=== PATIENT | female | born 1990 | race Hispanic/Latino ===

== ENCOUNTER 2023-10-08 12:00 | Outpatient (RCR) | payer OTHER, SELFPAY ==
--- NOTE | 2023-10-05 18:00 | PT.OIE ---
Current Diagnoses Dizziness and giddiness (10/05/23) Visit Care Team Role Provider Type Viktoriya Mejia MD Family Provider Non-Staff Primary Care Provider Specialty: Medical Address: [address] [place], [address] Email: Jadyn Galdamez MD Attending Provider Non-Staff Referring Provider Specialty: Medical Address: [address] [place] [address], [id number] Email: Physical Therapy Initial Evaluation PT-OP-A Visit Information Start: 10/05/23 17:55 Freq: Status: Active Protocol: Document 10/05/23 16:45 DCW (Rec: 10/05/23 18:02 DCW [id number]) Out-Patient Physical Therapy Visit Information Visit Information Visit Type Initial Evaluation Visit Start Time 16:45 Visit Stop Time 17:55 Visit Number 1 Number of RESEARCH SPECIALIST Visits 0 Evaluation Information Evaluation Date 10/05/23 PT-OP-B Current Condition Start: 10/05/23 17:55 Freq: Status: Active Protocol: Document 10/05/23 16:45 DCW (Rec: 10/06/23 09:44 DCW [id number]) Current Condition History of Current Condition Onset Date Multi-year history Current Complaints Repeated episodes of vertigo History of Current Condition Pt is a 32 year old female with a complicated history of vertigo. Pt reports her first episode was at 16, lasted a few weeks, and then went a few years with nothing. Returned again in 2018, and since that time, has episodes approximately once a year when she experiences was sounds like position-dependent vertigo, as well as low-grade imbalance/light-headedness with movement. Pt notes that in the past, she has done research online, and has tried to treat herself with Borok maneuvers, which has helped. Most recently, pt has had a more severe episode lasting ~ one month, pt's self-Brook did not help, and in fact, pt felt it made it worse. Notes when she is symptomatic, as noticed she moves around en bloc, with minimal head movement. Also reports fullness in her ears recently, although in the past, did not have fullness or pressure with her episodes. Notes during the Pandemic, pt experienced recurrent ear infections, and was given some antibiotics. Notes she did feel like her hearing afterward was muted, but largely returned after getting her ears flushed. Notes no history of head injury. Does admit to migraine history, reports that sometimes it feels there is associated headache activity with her dizziness, but not every time. PT-OP-C Subjective Start: 10/05/23 17:55 Freq: Status: Active Protocol: Document 10/05/23 16:45 DCW (Rec: 10/05/23 18:02 DCW [id number]) OP-PT Subjective Patient Comments Patient Comments It's been a lot worse this episode. It's never lasted this long. I had trouble getting around, because I felt like I couldn't even drive. Does note she has been improving over the past week. Patient Reported Progress Improving PT-OP-O Vestibular Start: 10/05/23 17:55 Freq: Status: Active Protocol: Document 10/05/23 16:45 DCW (Rec: 10/06/23 09:36 DCW [id number]) Vestibular Assessment Auditory Tests Peguero Test Lateralizes right Rinne Test Negative Air Conduction Results Left Greater Visual Testing Smooth Pursuits Horizontal WNL Smooth Pursuits Vertical WNL Saccades Horizontal WNL Saccades Vertical WNL Heave Test Negative Thrust Head Negative Convergence Test WNL DVA (Line Degradation) 4 Positional Testing Remi-Hallpike Negative Left,Negative Right Rolling Test Negative Left,Negative Right Vestibular Function Tests Fukuda Test Positive rotation right PT-OP-Q Treatments Start: 10/05/23 17:55 Freq: Status: Active Protocol: Document 10/05/23 16:45 DCW (Rec: 10/05/23 18:02 DCW [id number]) Self-Care/Home Management Treatment Education Other Education In depth pt education regarding A&P of vestibular system, BPPV vs Meniere's vs Migraine vs VN, potential treatments. PT-OP-T Assessment and Plan Start: 10/05/23 17:55 Freq: Status: Active Protocol: Document 10/05/23 16:45 DCW (Rec: 10/06/23 14:15 DCW [id number]) Physical Therapy Assessment Rehab Potential Rehabilitation Potential Fair Evaluation Complexity Number of Personal Factors/Comorbidities 3 or More Number of Body Systems Impaired 4 or More Clinical Presentation at Evaluation Unstable Impairments Impairments Balance,Coordination, Functional Activities, Functional Mobility,Gait, Vestibular Goals Two Impairment Pt demonstrates a 4 line degradation with Dynamic Visual Acuity testing Group Home Goal (LTG) Pt to exhibit at worst a two line DVA degradation in order to exhibit improvement with VOR. One Impairment Pt experiences recurrent episodes of vertigo, largely position-dependent Short Term Goal (STG) Pt to report no episodes of vertigo over the course of one month, allowing her to return to feeling safe driving her children STG Duration 11/05/23 Kiln Door Repairer Goal (LTG) Pt to report no episodes of vertigo over the course of three months LTG Duration 01/03/24 Assessment Summary Assessment Pt presents with a highly complex history of vertigo, with testing largely inconclusive at this time. Pt has some tests or subjective reports that are somewhat suggestive of various vestibular disorders, however nothing that fits well overall . Pt's subjective reports of vertigo that is largely position-dependent, as well as the fact that she has previously successfully treated herself with Brook maneuvers, makes potential BPPV the most likely scenario, in addition to the fact that the potential for canal conversion may be the reason why she has recently had worsening symptoms after attempted self-Brook. Pt is, however very young to be experiencing BPPV with this much frequency, especially with no head trauma history. Next most likely DDx would be Migraine Vertigo, due to pt's migraine history and the recurrent nature of her symptoms, however it would be very unusual for pt to have migraine activity for 1+ month straight, and would have been unlikely to respond to previous Brook attempts. Other less likely potential DDx include Meniere's, which would fit the recurrent nature and aural fullness, but little else, or a central cause, however pt not currently presenting with any signs or symptoms. Pt does, however, have a Neuro appointment in January, which may help rule in/out other potential central causes. Pt should benefit from further vestibular testing in an effort to continue DDx, as well as positional re-testing and CRM as needed. Pt chris additionally benefit from VOR/ Habituation/Adaptation vestibular exercises to help decrease severity of symptoms and improve DVA. Physical Therapy Plan Frequency and Duration Frequency of Treatment 2x/Week Plan of Care Start Date 10/05/23 Plan of Care End Date 01/03/24 Therapeutic Interventions Therapeutic Interventions Balance Training,Canalithic Repositioning,Coordination Training,Home Exercise Program ,Manual Therapy,Neuromuscular Re-education,Patient/Caregiver Education,Self-Care/Home Management,Soft Tissue Mobilization,Therapeutic Activities,Therapeutic Exercises,Vestibular Rehabilitation Next Visit Focus/Plan Next Note Type Treatment Note Next Visit Plan Positional testing, CRM as indicated, Vestibular rehabilitation
--- NOTE | 2023-10-05 18:00 | PT.OPPOC ---
Physical, Occupational & Speech Therapy At [facility] Current Diagnoses Dizziness and giddiness (10/05/23) Visit Care Team Role Provider Type Viktoriya Mejia MD Family Provider Non-Staff Primary Care Provider Specialty: Medical Address: [address] [place], [address] Email: Jadyn Galdamez MD Attending Provider Non-Staff Referring Provider Specialty: Medical Address: [address] [place] [address], [id number] Email: Plan Of Care PT-OP-T Assessment and Plan Start: 10/05/23 17:55 Freq: Status: Active Protocol: Document 10/05/23 16:45 DCW (Rec: 10/06/23 14:15 DCW [id number]) Physical Therapy Assessment Rehab Potential Rehabilitation Potential Fair Evaluation Complexity Number of Personal Factors/Comorbidities 3 or More Number of Body Systems Impaired 4 or More Clinical Presentation at Evaluation Unstable Impairments Impairments Balance,Coordination, Functional Activities, Functional Mobility,Gait, Vestibular Goals Two Impairment Pt demonstrates a 4 line degradation with Dynamic Visual Acuity testing Jail Goal (LTG) Pt to exhibit at worst a two line DVA degradation in order to exhibit improvement with VOR. One Impairment Pt experiences recurrent episodes of vertigo, largely position-dependent Short Term Goal (STG) Pt to report no episodes of vertigo over the course of one month, allowing her to return to feeling safe driving her children STG Duration 11/05/23 Bell Cleaner Goal (LTG) Pt to report no episodes of vertigo over the course of three months LTG Duration 01/03/24 Assessment Summary Assessment Pt presents with a highly complex history of vertigo, with testing largely inconclusive at this time. Pt has some tests or subjective reports that are somewhat suggestive of various vestibular disorders, however nothing that fits well overall . Pt's subjective reports of vertigo that is largely position-dependent, as well as the fact that she has previously successfully treated herself with Brook maneuvers, makes potential BPPV the most likely scenario, in addition to the fact that the potential for canal conversion may be the reason why she has recently had worsening symptoms after attempted self-Brook. Pt is, however very young to be experiencing BPPV with this much frequency, especially with no head trauma history. Next most likely DDx would be Migraine Vertigo, due to pt's migraine history and the recurrent nature of her symptoms, however it would be very unusual for pt to have migraine activity for 1+ month straight, and would have been unlikely to respond to previous Brook attempts. Other less likely potential DDx include Meniere's, which would fit the recurrent nature and aural fullness, but little else, or a central cause, however pt not currently presenting with any signs or symptoms. Pt does, however, have a Neuro appointment in January, which may help rule in/out other potential central causes. Pt should benefit from further vestibular testing in an effort to continue DDx, as well as positional re-testing and CRM as needed. Pt chris additionally benefit from VOR/ Habituation/Adaptation vestibular exercises to help decrease severity of symptoms and improve DVA. Physical Therapy Plan Frequency and Duration Frequency of Treatment 2x/Week Plan of Care Start Date 10/05/23 Plan of Care End Date 01/03/24 Therapeutic Interventions Therapeutic Interventions Balance Training,Canalithic Repositioning,Coordination Training,Home Exercise Program ,Manual Therapy,Neuromuscular Re-education,Patient/Caregiver Education,Self-Care/Home Management,Soft Tissue Mobilization,Therapeutic Activities,Therapeutic Exercises,Vestibular Rehabilitation Next Visit Focus/Plan Next Note Type Treatment Note Next Visit Plan Positional testing, CRM as indicated, Vestibular rehabilitation Plan of Care Dates Plan of Care Start Date 10/05/23 Plan of Care End Date 01/03/24 Electronically Signed by: Jarett Prakash, PT 10/06/23 [id number] If you are in agreement with this Plan of Care, please return a signed and dated copy. I have reviewed this Plan of Care and certify that the skilled therapy services above are required to meet the patient?s needs. Physician Signature Date Printed Name and Credentials Clinical Instructor Signature Printed Name and Credentials
--- NOTE | 2023-10-06 14:17 | PT.OPPOC ---
Physical, Occupational & Speech Therapy At [facility] Current Diagnoses Dizziness and giddiness (10/05/23) Visit Care Team Role Provider Type Viktoriya Mejia MD Family Provider Non-Staff Primary Care Provider Specialty: Medical Address: [address] [place], [address] Email: Jadyn Galdamez MD Attending Provider Non-Staff Referring Provider Specialty: Medical Address: [address] [place] [address], [id number] Email: Plan Of Care PT-OP-T Assessment and Plan Start: 10/05/23 17:55 Freq: Status: Active Protocol: Document 10/05/23 16:45 DCW (Rec: 10/06/23 14:15 DCW [id number]) Physical Therapy Assessment Rehab Potential Rehabilitation Potential Fair Evaluation Complexity Number of Personal Factors/Comorbidities 3 or More Number of Body Systems Impaired 4 or More Clinical Presentation at Evaluation Unstable Impairments Impairments Balance,Coordination, Functional Activities, Functional Mobility,Gait, Vestibular Goals Two Impairment Pt demonstrates a 4 line degradation with Dynamic Visual Acuity testing Detention Goal (LTG) Pt to exhibit at worst a two line DVA degradation in order to exhibit improvement with VOR. One Impairment Pt experiences recurrent episodes of vertigo, largely position-dependent Short Term Goal (STG) Pt to report no episodes of vertigo over the course of one month, allowing her to return to feeling safe driving her children STG Duration 11/05/23 Instructional Services Librarian Goal (LTG) Pt to report no episodes of vertigo over the course of three months LTG Duration 01/03/24 Assessment Summary Assessment Pt presents with a highly complex history of vertigo, with testing largely inconclusive at this time. Pt has some tests or subjective reports that are somewhat suggestive of various vestibular disorders, however nothing that fits well overall . Pt's subjective reports of vertigo that is largely position-dependent, as well as the fact that she has previously successfully treated herself with Brook maneuvers, makes potential BPPV the most likely scenario, in addition to the fact that the potential for canal conversion may be the reason why she has recently had worsening symptoms after attempted self-Brook. Pt is, however very young to be experiencing BPPV with this much frequency, especially with no head trauma history. Next most likely DDx would be Migraine Vertigo, due to pt's migraine history and the recurrent nature of her symptoms, however it would be very unusual for pt to have migraine activity for 1+ month straight, and would have been unlikely to respond to previous Brook attempts. Other less likely potential DDx include Meniere's, which would fit the recurrent nature and aural fullness, but little else, or a central cause, however pt not currently presenting with any signs or symptoms. Pt does, however, have a Neuro appointment in January, which may help rule in/out other potential central causes. Pt should benefit from further vestibular testing in an effort to continue DDx, as well as positional re-testing and CRM as needed. Pt chris additionally benefit from VOR/ Habituation/Adaptation vestibular exercises to help decrease severity of symptoms and improve DVA. Physical Therapy Plan Frequency and Duration Frequency of Treatment 2x/Week Plan of Care Start Date 10/05/23 Plan of Care End Date 01/03/24 Therapeutic Interventions Therapeutic Interventions Balance Training,Canalithic Repositioning,Coordination Training,Home Exercise Program ,Manual Therapy,Neuromuscular Re-education,Patient/Caregiver Education,Self-Care/Home Management,Soft Tissue Mobilization,Therapeutic Activities,Therapeutic Exercises,Vestibular Rehabilitation Next Visit Focus/Plan Next Note Type Treatment Note Next Visit Plan Positional testing, CRM as indicated, Vestibular rehabilitation Plan of Care Dates Plan of Care Start Date 10/05/23 Plan of Care End Date 01/03/24 Electronically Signed by: Jarett Prakash, PT 10/06/23 [id number] If you are in agreement with this Plan of Care, please return a signed and dated copy. I have reviewed this Plan of Care and certify that the skilled therapy services above are required to meet the patient?s needs. Physician Signature Date Printed Name and Credentials Clinical Instructor Signature Printed Name and Credentials
--- NOTE | 2023-10-08 13:26 | PT.OTN ---
Current Diagnoses Dizziness and giddiness (10/08/23) Physical Therapy Treatment Note PT-OP-A Visit Information Start: 10/05/23 17:55 Freq: Status: Active Protocol: Document 10/08/23 12:00 DCW (Rec: 10/08/23 13:26 DCW [id number]) Out-Patient Physical Therapy Visit Information Visit Information Visit Type Treatment Note Visit Start Time 12:00 Visit Stop Time 12:45 Visit Number 2 Number of TROUSSEAU CONSULTANT Visits 0 Evaluation Information Evaluation Date 10/05/23 PT-OP-B Current Condition Start: 10/05/23 17:55 Freq: Status: Active Protocol: Document 10/05/23 16:45 DCW (Rec: 10/06/23 09:44 DCW [id number]) Current Condition History of Current Condition Onset Date Multi-year history Current Complaints Repeated episodes of vertigo History of Current Condition Pt is a 32 year old female with a complicated history of vertigo. Pt reports her first episode was at 16, lasted a few weeks, and then went a few years with nothing. Returned again in 2018, and since that time, has episodes approximately once a year when she experiences was sounds like position-dependent vertigo, as well as low-grade imbalance/light-headedness with movement. Pt notes that in the past, she has done research online, and has tried to treat herself with Brook maneuvers, which has helped. Most recently, pt has had a more severe episode lasting ~ one month, pt's self-Brook did not help, and in fact, pt felt it made it worse. Notes when she is symptomatic, as noticed she moves around en bloc, with minimal head movement. Also reports fullness in her ears recently, although in the past, did not have fullness or pressure with her episodes. Notes during the Pandemic, pt experienced recurrent ear infections, and was given some antibiotics. Notes she did feel like her hearing afterward was muted, but largely returned after getting her ears flushed. Notes no history of head injury. Does admit to migraine history, reports that sometimes it feels there is associated headache activity with her dizziness, but not every time. PT-OP-C Subjective Start: 10/05/23 17:55 Freq: Status: Active Protocol: Document 10/08/23 12:00 DCW (Rec: 10/08/23 13:26 DCW [id number]) OP-PT Subjective Patient Comments Patient Comments Pt admits she felt slightly nauseous and light-headed after her last appointment, but has felt fine since then. Overall, feels like she isn't very symptomsatic at the moment, hoping to push out follow-up for ~1 month PT-OP-O Vestibular Start: 10/05/23 17:55 Freq: Status: Active Protocol: Document 10/05/23 16:45 DCW (Rec: 10/06/23 09:36 DCW [id number]) Vestibular Assessment Auditory Tests Peguero Test Lateralizes right Rinne Test Negative Air Conduction Results Left Greater Visual Testing Smooth Pursuits Horizontal WNL Smooth Pursuits Vertical WNL Saccades Horizontal WNL Saccades Vertical WNL Heave Test Negative Thrust Head Negative Convergence Test WNL DVA (Line Degradation) 4 Positional Testing Remi-Hallpike Negative Left,Negative Right Rolling Test Negative Left,Negative Right Vestibular Function Tests Fukuda Test Positive rotation right PT-OP-Q Treatments Start: 10/05/23 17:55 Freq: Status: Active Protocol: Document 10/08/23 12:00 DCW (Rec: 10/08/23 13:26 [facility] [id number]) Self-Care/Home Management Treatment Education Other Education Review of pt's symptoms, home- Brook review, education on canal conversion, Barbecue maneuver, and roll testing Canalithic Repositioning BPPV Treatment Brook Affected Canal(s) R Posterior Canal? Reps x1 Comments Modified Brook PT-OP-T Assessment and Plan Start: 10/05/23 17:55 Freq: Status: Active Protocol: Document 10/08/23 12:00 DCW (Rec: 10/08/23 13:26 [facility] [id number]) Physical Therapy Assessment Impairments Impairments Balance,Coordination, Functional Activities, Functional Mobility,Gait, Vestibular Goals Two Impairment Pt demonstrates a 4 line degradation with Dynamic Visual Acuity testing Mcc Goal (LTG) Pt to exhibit at worst a two line DVA degradation in order to exhibit improvement with VOR. One Impairment Pt experiences recurrent episodes of vertigo, largely position-dependent Short Term Goal (STG) Pt to report no episodes of vertigo over the course of one month, allowing her to return to feeling safe driving her children STG Duration 11/05/23 Mcc Goal (LTG) Pt to report no episodes of vertigo over the course of three months LTG Duration 01/03/24 Assessment Summary Assessment Pt noted feeling overall asymptomatic today, but had more questions regarding DDx and requested feedback on her performance of self-Brook. In review of self-Brook, adjustment was made to the positioning of her head in position 3, which resulted in immediate increase in symptoms of nausea and dizziness. Then completed Brook maneuver, pt experienced nausea and broke out in a sweat, but then felt much better after a short time . With this response, DDx does continue to look more likely to be abnormal presentation of BPPV, but there is still concern for complications from Migraine. Pt does have upcoming follow-up with both ENT and Neuro. Has moved her next PT visit to ~1 month from now, instructed to call to move appointment up if symptoms worsen or change. Pt also has different referral for a separate PT issue, her initial evaluation is scheduled in November, and pt understands she will need to be discharged from vestibular PT by that time. Physical Therapy Plan Frequency and Duration Frequency of Treatment 2x/Week Plan of Care Start Date 10/05/23 Plan of Care End Date 01/03/24 Therapeutic Interventions Therapeutic Interventions Balance Training,Canalithic Repositioning,Coordination Training,Home Exercise Program ,Manual Therapy,Neuromuscular Re-education,Patient/Caregiver Education,Self-Care/Home Management,Soft Tissue Mobilization,Therapeutic Activities,Therapeutic Exercises,Vestibular Rehabilitation Next Visit Focus/Plan Next Note Type Treatment Note Next Visit Plan Positional testing, CRM as indicated, Vestibular rehabilitation
--- NOTE | 2023-11-03 17:39 | PT.OPDS ---
Current Diagnoses Dizziness and giddiness (10/08/23) Visit Care Team Role Provider Type Viktoriya Mejia MD Family Provider Non-Staff Primary Care Provider Specialty: Medical Address: [address] [place], [address] Email: Jadyn Galdamez MD Attending Provider Non-Staff Referring Provider Specialty: Medical Address: [address] [place] [address], [id number] Email: Visit Number Visit Number 2 Discharge Summary PT-OP-B Current Condition Start: 10/05/23 17:55 Freq: Status: Active Protocol: Document 10/05/23 16:45 DCW (Rec: 10/06/23 09:44 DCW [id number]) Current Condition History of Current Condition Onset Date Multi-year history Current Complaints Repeated episodes of vertigo History of Current Condition Pt is a 32 year old female with a complicated history of vertigo. Pt reports her first episode was at 16, lasted a few weeks, and then went a few years with nothing. Returned again in 2018, and since that time, has episodes approximately once a year when she experiences was sounds like position-dependent vertigo, as well as low-grade imbalance/light-headedness with movement. Pt notes that in the past, she has done research online, and has tried to treat herself with Brook maneuvers, which has helped. Most recently, pt has had a more severe episode lasting ~ one month, pt's self-Brook did not help, and in fact, pt felt it made it worse. Notes when she is symptomatic, as noticed she moves around en bloc, with minimal head movement. Also reports fullness in her ears recently, although in the past, did not have fullness or pressure with her episodes. Notes during the Pandemic, pt experienced recurrent ear infections, and was given some antibiotics. Notes she did feel like her hearing afterward was muted, but largely returned after getting her ears flushed. Notes no history of head injury. Does admit to migraine history, reports that sometimes it feels there is associated headache activity with her dizziness, but not every time. PT-OP-C Subjective Start: 05/20/24 17:55 Freq: Status: Active Protocol: Document 10/08/23 12:00 DCW (Rec: 10/08/23 13:26 DCW [id number]) OP-PT Subjective Patient Comments Patient Comments Pt admits she felt slightly nauseous and light-headed after her last appointment, but has felt fine since then. Overall, feels like she isn't very symptomsatic at the moment, hoping to push out follow-up for ~1 month PT-OP-O Vestibular Start: 10/05/23 17:55 Freq: Status: Active Protocol: Document 10/05/23 16:45 DCW (Rec: 10/06/23 09:36 DCW [id number]) Vestibular Assessment Auditory Tests Peguero Test Lateralizes right Rinne Test Negative Air Conduction Results Left Greater Visual Testing Smooth Pursuits Horizontal WNL Smooth Pursuits Vertical WNL Saccades Horizontal WNL Saccades Vertical WNL Heave Test Negative Thrust Head Negative Convergence Test WNL DVA (Line Degradation) 4 Positional Testing Remi-Hallpike Negative Left,Negative Right Rolling Test Negative Left,Negative Right Vestibular Function Tests Fukuda Test Positive rotation right PT-OP-T Assessment and Plan Start: 10/05/23 17:55 Freq: Status: Active Protocol: Document 11/03/23 17:38 DCW (Rec: 11/03/23 17:39 DCW [id number]) Physical Therapy Assessment Assessment Summary Assessment Pt canceled last remaining appointment, will be attending PT for a separate issue with a new referral. Pt to be discharged from vestibular therapy at this time. Physical Therapy Plan Discharge Physical Therapy Discharge Reasons No Longer Attending PT
== END 2023-11-09 11:09 | disposition home or self-care (01) ==
LOC: PHYS 12:00
PROVIDERS: Family Provider Obstetrics & Gynecology; PCP Obstetrics & Gynecology; Referring Provider Student in an Organized Health Care Education/Training Program; Visit Provider Student in an Organized Health Care Education/Training Program
DX: R42 Dizziness and giddiness (principal)
CPT/HCPCS: 95992; 97163; 97535

== ENCOUNTER → 2024-10-15 13:56 | Outpatient (CLI) | payer OTHER, SELFPAY ==
[2024-10-15 15:25] LABS: Influenza A - CEPHEID Flu A NEGATIVE (NEGATIVE); Influenza B - CEPHEID Flu B NEGATIVE (NEGATIVE); Respiratory Syncytial Virus Negative (Negative)
[2024-10-15 15:27] LABS: COVID-19 CEPHEID 4-PLEX PCR Negative (Negative)
== END ==
PROVIDERS: Family Provider Obstetrics & Gynecology; PCP Obstetrics & Gynecology; Visit Provider Nurse Practitioner Family
DX: R52 Pain, unspecified (principal); J02.9 Acute pharyngitis, unspecified
CPT/HCPCS: 0241U; 87070

== ENCOUNTER 2024-10-28 22:05 | Emergency (ER) | payer OTHER, SELFPAY ==
[2024-10-28 22:15] VITALS: BP 113/81; PULSE 66; RESP 15; TEMP 36.7; O2SAT 99; BMI 34.3
--- NOTE | 2024-10-28 23:01 | ED.URI ---
HPI - URI/Sore Throat General Chief Complaint: Upper Respiratory Symptoms Stated Complaint: [id number], puss pockets in throat Time Seen by Provider: 10/28/24 23:08 Source: patient Mode of arrival: Ambulatory History of Present Illness HPI Narrative: 34-year-old female no significant past medical history presents for sore throat, she states that a proximally 3 weeks ago everybody in the house had similar symptoms states that she completed a course of amoxicillin approximately a week ago, she states that her symptoms did improve at that time but states that over the past 2 3 days symptoms reoccurred, she states that she sees pus in the back of her throat she denies any difficulty swallowing breathing speaking but states that she does have a sore throat. At time of evaluation patient is speaking full sentences protecting airway no voice changes no stridor no trismus. Related Data Home Medications ?Medication ?Instructions ?Recorded ?Confirmed sumatriptan succinate 50 mg tablet mg PO 03/25/23 03/25/23 loratadine 10 mg tablet 10 mg PO DAILY 10/15/24 10/28/24 topiramate 25 mg tablet 25 mg PO DAILY 10/15/24 10/28/24 rizatriptan 5 mg tablet 5 mg PO Q2H PRN migraine headache 10/28/24 10/28/24 Previous Rx's ?Medication ?Instructions ?Recorded fluticasone propionate 50 1 spray intranasal Q12H #16 grams 03/25/23 mcg/actuation nasal spray,suspension (Flonase Allergy Relief) amoxicillin 875 mg-potassium 1 tab PO BID 10 days #20 tabs 10/29/24 clavulanate 125 mg tablet Allergies Allergy/AdvReac Type Severity Reaction Status Date / Time No Known Drug Allergies Allergy Unverified 10/28/24 22:12 Review of Systems Review of Systems Narrative: General: Denies fever, chills, weight loss HEENT: Positive sore throat Denies headache, eye drainage, eye irritation, head trauma, voice change Cardiovascular: Denies any chest pain, palpitations, tachycardia Respiratory: Denies any shortness of breath, cough, wheeze, stridor GI/: Denies any abdominal pain, nausea, vomiting, diarrhea, bright red blood per rectum, melanotic stools, urinary frequency, urinary retention, dysuria, hematuria MSK: Denies any joint pain, muscle pains, swelling Skin: Denies any rashes, lesions, discoloration Neuro: Denies any headache, lightheadedness, dizziness, fainting, weakness Psych: Denies SI/HI Patient History Social History Smoking Status: Former smoker Smoking Status: Former smoker Exam Narrative Exam Narrative: General: Cooperative, well-developed, not in acute distress HEENT: Normocephalic, atraumatic, PERRLA, normal sclera, eyelids normal, patient with scattered exudates noted to bilateral tonsils, uvula is midline patient is speaking in full sentences protecting airway no voice changes no stridor no trismus follow up patient tolerating secretions Neck: Active full range of motion, atraumatic Chest: Normal to inspection, negative crepitus, no overlying erythema ecchymosis Respiratory: Normal respiratory effort, not in acute respiratory distress, clear to auscultation bilaterally negative cough, wheeze, tachypnea, rhonchi, rales Cardiology: Regular rate rhythm negative gallop, murmur, rubs GI/: No tenderness to palpation, soft, non rigid, normal to inspection, exam deferred MSK: Full active range of motion in all 4 extremities, atraumatic, no tenderness to palpation of any bony prominences Skin: No rashes or lesions noted Neuro: Alert awake oriented x3, moves all 4 extremities spontaneously, cranial nerves intact, able to answer all questions appropriately follows commands appropriately Psych: Cooperative, negative suicidal or homicidal ideations Initial Vital Signs Initial Vital Signs: Vital Signs Temperature 98.1 F 10/28/24 22:15 Pulse Rate 66 10/28/24 22:15 Respiratory Rate 15 10/28/24 22:15 Blood Pressure 113/81 10/28/24 22:15 Pulse Oximetry 99 10/28/24 22:15 Oxygen Delivery Method Room Air 10/28/24 22:15 Course Orders Ordered: ED Orders 10/28/24 23:00 Strep Grp A by PCR Rapid Stat Vital Signs Vital signs: Vital Signs - 8 hr 10/28/24 22:15 10/28/24 23:46 Temperature 98.1 F Pulse Rate 66 72 Respiratory Rate 15 16 Blood Pressure 113/81 129/76 Pulse Oximetry 99 97 Oxygen Delivery Method Room Air Room Air MDM - URI/Sore Throat Differential Diagnosis Differential diagnosis: Likely upper respiratory infection, sinusitis and other (Strep pharyngitis) Lab Data Labs: Lab Results 10/28/24 Range/Units 23:00 Group A Strep (PCR) Negative (Negative) MDM Narrative Medical decision making narrative: 34-year-old female without any significant past medical history presenting for sore throat ongoing intermittent for the past 3 weeks, states that a week ago she completed a course of amoxicillin but symptoms reoccurred and decided come into the ED, on exam there is some exudate noted to bilateral tonsils, however posterior oropharynx is clear uvula midline patient is speaking full sentences protecting airway no voice changes no stridor no trismus. Patient did have strep test performed here did not show positive strep pharyngitis, however after lengthy conversation with the patient and her request for antibiotics we will provide her with prescription for Augmentin, informed her to follow up with primary care in outpatient setting she verbalized understanding of this and agrees to being discharged home with outpatient follow up Discharge Plan Departure Patient Disposition: Home Clinical Impression: Pharyngitis Activity Restrictions/Additional Instructions: Please follow up with the primary care doctor Please read the discharge instructions sheet carefully and bring all papers to all doctor follow-up visits, as it may contain information that your doctor may want to see. Disease processes change and evolve, if your symptoms worsen or if you develop any new symptoms that are concerning to you please return for evaluation. Your evaluation today does not show any evidence of any life-threatening/serious illnesses requiring admission to the hospital or surgery. Please follow-up with your doctor for re-evaluation in approximately 1 day. Seek immediate medical attention for any worrisome symptoms. *If you do not have a primary care provider please contact the [facility] Resource line at [phone]. They will ask some questions about your medical history and help get you set up with a doctor in the community. Prescriptions: New amoxicillin-pot clavulanate 875-125 mg tablet 1 tab PO BID 10 Days Qty: 20 0RF No Action sumatriptan succinate 50 mg tablet PO fluticasone propionate [Flonase Allergy Relief] 50 mcg/actuation spray,suspension 1 spray intranasal Q12H Qty: 16 0RF Rx Instructions: administer into each nostril topiramate 25 mg tablet 25 mg PO DAILY loratadine 10 mg tablet 10 mg PO DAILY rizatriptan 5 mg tablet 5 mg PO Q2H PRN (Reason: migraine headache) Referrals: Viktoriya Mejia MD [Primary Care Provider, Medical] Stand Alone Forms: Patient Portal/API
[2024-10-28 23:27] LABS: Strep Grp A by PCR Rapid Negative (Negative)
[2024-10-28 23:46] VITALS: BP 129/76; PULSE 72; RESP 16; O2SAT 97
[2024-10-29] MEDS: AMOXICILLIN/CLAV 875/125 MG 1 TAB PO (00:14)
== END 2024-10-29 00:18 | disposition home or self-care (01) ==
PROVIDERS: Emergency Provider Student in an Organized Health Care Education/Training Program; Family Provider Obstetrics & Gynecology; PCP Obstetrics & Gynecology
DX: J02.9 Acute pharyngitis, unspecified (principal); Z87.891 Personal history of nicotine dependence
CPT/HCPCS: 87651; 99283

== ENCOUNTER → 2024-12-14 15:07 | Outpatient (CLI) | payer OTHER, SELFPAY | PROVIDERS: Family Provider Obstetrics & Gynecology; PCP Obstetrics & Gynecology; Visit Provider Chiropractor | DX: R30.0 Dysuria (principal) | CPT/HCPCS: 87086; 87210 ==

== ENCOUNTER 2025-03-08 21:18 | Emergency (ER) | payer OTHER, SELFPAY ==
[2025-03-08 21:26] VITALS: BP 138/88; PULSE 85; RESP 17; TEMP 36.6; O2SAT 100; BMI 31.6
--- NOTE | 2025-03-08 23:12 | DI.US.S_ITS ---
PROCEDURE: US ABDOMEN LIMITED INDICATIONS: right upper quadrant pain TECHNIQUE: Real-time scanning was performed of the abdominal and retroperitoneal organs, with image documentation. COMPARISON: None. FINDINGS: Liver: Liver is normal in size and homogeneous in echotexture. Gallbladder: Multiple small gallstones. No wall thickening. No pericholecystic edema. Negative sonographic Moscoso's sign. Biliary ducts: Intrahepatic bile ducts are non-dilated. Extrahepatic bile duct caliber measures 5 mm. Normal is 6-7 mm or less in diameter, or 10 mm or less post-cholecystectomy. Pancreas: Visualized portions of the pancreas are sonographically normal. Miscellaneous: No free abdominal fluid. IMPRESSION: No acute cholecystitis. Multiple gallstones. Dictated by: Saeed Ramon M.D. on 03/09/2025 at 1:01 Approved by: Saeed Ramon M.D. on 03/09/2025 at 1:02
[2025-03-08 23:30] LABS: Add Manual Diff / Slide Review NO; Hematocrit 39.3 % (36-46); Hemoglobin 13.4 g/dL (12.0-16.0); Lymphocytes Absolute Auto 3000 /uL (1100-4500); Mean Corpuscular HGB Conc 34.2 % (30-36); Mean Corpuscular Hemoglobin 30.0 PG (26-34); Mean Corpuscular Volume 87.8 fL (80-100); Platelet Count 212 X10^3/uL (150-400)
[2025-03-08 23:39] LABS: Alanine Aminotransferase 27 IU/L (<35); Albumin 4.6 g/dL (3.5-5.0); Albumin Globulin Ratio 1.6 (1.0-2.8); Alkaline Phosphatase 68 U/L (38-126); Blood Urea Nitrogen 11 mg/dL (7-17); Calcium 9.4 mg/dL (8.4-10.2); Carbon Dioxide 23 mmol/L (22-32); Chloride 106 mmol/L (98-107); Estimated Glomerular Filt Rate > 60 mL/min (>60); Globulin 2.9 g/dL (1.7-4.1); Glucose 91 mg/dL (70-99); HEMOLYSIS < 15 (0-50); Lipase 124 U/L (23-300); Potassium 3.6 mmol/L (3.4-5.1); Sodium 139 mmol/L (137-145); Total Protein 7.5 g/dL (6.3-8.2)
[2025-03-09 00:36] VITALS: PULSE 79; O2SAT 99
[2025-03-09 00:37] VITALS: BP 101/56; PULSE 74; O2SAT 100
[2025-03-09] MEDS: ONDANSETRON 4 MG/2 ML INJ IV (00:40)
[2025-03-09 01:00] VITALS: BP 102/59; PULSE 65; O2SAT 100
[2025-03-09 01:30] VITALS: BP 102/55; PULSE 54; PULSE 80; RESP 16; O2SAT 99
--- NOTE | 2025-03-09 01:40 | ED.ABDPAIN ---
HPI - Abdominal Pain General Chief Complaint: Abdominal Pain Stated Complaint: SOB, N, URQ Pain, Ear Ache Time Seen by Provider: 03/09/25 01:08 Source: patient Mode of arrival: Ambulatory History of Present Illness HPI narrative: 34-year-old female no prior abdominopelvic surgeries, complains of intermittent right upper quadrant abdominal pain for the last 1 month, sometimes with food, can not seemed to differentiate if specifically with fatty foods or dairy products, no prior cholecystectomy, no prior upper endoscopy, she has tried omeprazole with no relief. Denies history of kidney stones, painful frequent urination, change in urination. Denies pelvic infections. Denies any injury trauma new activities. Denies black or red stools. Has had some nausea without emesis. Related Data Home Medications ?Medication ?Instructions ?Recorded ?Confirmed sumatriptan succinate 50 mg tablet mg PO 03/25/23 12/14/24 loratadine 10 mg tablet 10 mg PO DAILY 10/15/24 12/14/24 topiramate 25 mg tablet 25 mg PO DAILY 10/15/24 12/14/24 rizatriptan 10 mg disintegrating mg PO 12/14/24 12/14/24 tablet Previous Rx's ?Medication ?Instructions ?Recorded fluticasone propionate 50 1 spray intranasal Q12H #16 grams 03/25/23 mcg/actuation nasal spray,suspension (Flonase Allergy Relief) fluconazole 100 mg tablet 100 mg PO DAILY #7 tabs 12/14/24 hydrocodone 5 mg-acetaminophen 325 1 tab PO Q6H PRN pain #14 tabs 03/09/25 mg tablet Allergies Allergy/AdvReac Type Severity Reaction Status Date / Time No Known Drug Allergies Allergy Unverified 03/08/25 21:26 Patient History Social History Smoking Status: Never smoker Smoking Status: Never smoker Exam Narrative Exam Narrative: GENERAL: Well-developed patient, in mild distress. HEAD: Atraumatic. Normocephalic. EYES: Pupils equal round and reactive. Extraocular motions intact. No scleral icterus. No injection or drainage. ENT: Nose without bleeding, purulent drainage. Throat without erythema, tonsillar hypertrophy or exudate. Airway patent. NECK: Trachea midline. Non tender CARDIOVASCULAR: Regular rate and rhythm without murmurs, gallops, or rubs. RESPIRATORY: Clear to auscultation. Breath sounds equal bilaterally. No wheezes, rales, or rhonchi. GASTROINTESTINAL: Abdomen soft, non-tender, nondistended. No tenderness to right upper quadrant, nondistended, bowel tones unremarkable, without rushes or tinkles. EXTREMITIES: No edema or joint tenderness. BACK: Nontender without deformity or crepitance. No flank tenderness. NEURO: AOx3. Motor functions grossly nonfocal. SKIN: No rash or erythema of visible areas Initial Vital Signs Initial Vital Signs: Vital Signs Temperature 97.8 F 03/08/25 21:26 Pulse Rate 85 03/08/25 21: Respiratory Rate 17 03/08/25 21: Blood Pressure 138/88 03/08/25 21: Pulse Oximetry 100 03/08/25 21: Oxygen Delivery Method Room Air 03/08/25 21:26 Course Orders Ordered: Discontinued Medications Hydrocodone Bitart/Acetaminophen (Hydrocodone/Acet 5/325 Tablet) 1 tab PO NOW ONE Stop: 03/09/25 01:42 Last Admin: 03/09/25 01:58 Dose: 1 tab Documented By: TASHA Hydrocodone Bitart/Acetaminophen (Hydrocodone/Acet 5/325 Prepack) 1 bottle MISC DIRECTED ONE Stop: 03/09/25 01:42 Last Admin: 03/09/25 01:58 Dose: 1 bottle Documented By: TASHA Ondansetron HCl (Ondansetron 4 Mg/2 Ml Inj) 4 mg IV NOW PRN PRN Reason: Nausea And Vomiting Last Admin: 03/09/25 00:40 Dose: 4 mg Documented By: KANDACE Ondansetron HCl (Ondansetron 4 Mg Odt) 4 mg PO NOW PRN PRN Reason: Nausea And Vomiting Vital Signs Vital signs: Vital Signs - 8 hr 03/08/25 21:26 Temperature 97.8 F Pulse Rate 85 Respiratory Rate 17 Blood Pressure 138/88 Pulse Oximetry 100 Oxygen Delivery Method Room Air MDM - Abdominal Pain Lab Data Attestation: I reviewed the patient's lab results. Lab results narrative: White blood cell count 12284, hemoglobin 13.4, platelets adequate. Glucose 91. Normal renal function, serum CO2 electrolytes. Liver functions and lipase normal. 03/08/25 23:20 03/08/25 23:20 Labs: Lab Results 03/08/25 Range/Units 23:20 WBC 10.1 (4.5-11.0) X10^3/uL RBC 4.48 (4.0-5.2) X10^6/uL Hgb 13.4 (12.0-16.0) g/dL Hct 39.3 (36-46) % MCV 87.8 (80-100) fL MCH 30.0 (26-34) PG MCHC 34.2 (30-36) % RDW 12.8 (11.6-14.8) % Plt Count 212 (150-400) X10^3/uL Neut % (Auto) 61.8 (50-75) % Lymph % (Auto) 29.4 (25-40) % Madison % (Auto) 7.2 (3-14) % Eos % (Auto) 1.3 L (2-4) % Baso % (Auto) 0.3 (0-2) % Neut # (Auto) 6200 (9827-4233) /uL Lymph # (Auto) 3000 (2848-7533) /uL Madison # (Auto) 700 (0-900) /uL Eos # (Auto) 100 (0-450) /uL Baso # (Auto) 0 (0-100) /uL Sodium 139 (137-145) mmol/L Potassium 3.6 (3.4-5.1) mmol/L Chloride 106 (98-107) mmol/L Carbon Dioxide 23 (22-32) mmol/L BUN 11 (7-17) mg/dL Creatinine 0.78 (0.52-1.04) mg/dL Estimated GFR > 60 (>60) mL/min BUN/Creatinine Ratio 14.1 (6-22) Glucose 91 (70-99) mg/dL Calcium 9.4 (8.4-10.2) mg/dL Total Bilirubin 0.6 (0.2-1.3) mg/dL AST 22 (14-36) IU/L ALT 27 (<35) IU/L Alkaline Phosphatase 68 (38-126) U/L Total Protein 7.5 (6.3-8.2) g/dL Albumin 4.6 (3.5-5.0) g/dL Globulin 2.9 (1.7-4.1) g/dL Albumin/Globulin Ratio 1.6 (1.0-2.8) Lipase 124 (23-300) U/L HCG, Quant < 2.39 mIU/mL MDM Narrative Medical decision making narrative: 34-year-old female with 1 month duration intermittent right upper quadrant abdominal discomfort, refractory to home regimen omeprazole, no prior EGD, no prior cholecystectomy or any other abdominopelvic surgeries. Afebrile, sirs screen negative. Labs pending. DDx consider cholelithiasis, PUD, MICHELLE, pancreatitis, UTI, ureteral stone, gynecology, other. Lab data: White blood cell count 59477, hemoglobin 13.4, platelets adequate. Glucose 91. Normal renal function, serum CO2 electrolytes. Liver functions and lipase normal. Ultrasound right upper quadrant shows presence of gallstones, without pericholecystic fluid or gallbladder wall thickening or ductal dilatation changes. See radiology report. Possible symptomatic cholelithiasis, general surgery outpatient consultation advised. Can continue omeprazole. Pain medications as needed, given home pack of hydrocodone/APAP, prescription sent to her pharmacy. Discharge Plan Departure Patient Disposition: Home Clinical Impression: Symptomatic cholelithiasis Activity Restrictions/Additional Instructions: Intermittent right upper quadrant abdominal pain, no tenderness on exam. No fever on triage. Screening laboratory studies unremarkable. Ultrasound showed presence of gallbladder stones but no thickening of the gallbladder wall or fluid around the gallbladder, no obstructive changes. You likely have symptomatic gallstones, and likely would benefit from surgical consultation and future removal. No emergency gallbladder surgery indicated at this time. But return if you have unexplained fevers, persistent worsening of symptoms. Consider avoids of fatty foods and dairy products. Given home pack of hydrocodone/APAP, prescription sent to your pharmacy. Take pain medications as needed. Follow up with General surgery for outpatient consultation and coordination of possible future gallbladder surgery removal. Contact information given for local general surgery clinic. Return earlier to this/nearest emergency department for any change worsening symptoms or any concerns prior. Prescriptions: New hydrocodone-acetaminophen 5-325 mg tablet 1 tab PO Q6H PRN (Reason: pain) Qty: 14 0RF No Action sumatriptan succinate 50 mg tablet PO fluticasone propionate [Flonase Allergy Relief] 50 mcg/actuation spray,suspension 1 spray intranasal Q12H Qty: 16 0RF Rx Instructions: administer into each nostril rizatriptan 10 mg tablet,disintegrating PO fluconazole 100 mg tablet 100 mg PO DAILY Qty: 7 0RF topiramate 25 mg tablet 25 mg PO DAILY loratadine 10 mg tablet 10 mg PO DAILY Referrals: Kenny Miles MD [Physician, General Surgery] Viktoriya Mejia MD [Primary Care Provider, Medical] Julio Mann MD [Physician, General Surgery] Stand Alone Forms: Patient Portal/API
[2025-03-09 02:00] VITALS: BP 102/60; PULSE 72; O2SAT 99
[2025-03-09 03:13] LABS: HCG Quantitative /Beta subunit < 2.39 mIU/mL
== END 2025-03-09 02:06 | disposition home or self-care (01) ==
PROVIDERS: Emergency Provider Emergency Medicine; Family Provider Obstetrics & Gynecology; PCP Obstetrics & Gynecology
DX: K80.20 Calculus of gallbladder without cholecystitis without obstruction (principal)
CPT/HCPCS: 36415; 76705; 80053; 83690; 84702; 85025; 96374; 99284; J2405

== ENCOUNTER 2025-03-29 09:00 | Day surgery (SDC) | payer OTHER, SELFPAY ==
[2025-03-21 12:55] VITALS: BMI 32.5
[2025-03-29] VITALS (7 sets, daily range): BP systolic 101–127; BP diastolic 62–77; PULSE 60–83; RESP 15–19; TEMP 36.2–36.6; O2SAT 97–100
--- NOTE | 2025-03-29 | PATH_ITS ---
[facility] Accession Number: [id number] No. of containers..01 Tissue . 01 Material submitted: . gallbladder - GALLBLADDER . 01 Diagnosis: GALLBLADDER, CHOLECYSTECTOMY: Mild chronic cholecystitis with cholelithiasis. Negative for dysplasia or malignancy. One benign reactive lymph node, negative for metastatic carcinoma. [facility] 04/07/2025 1204 Local . 01 Electronically signed: . Reyna Cotto MD, Pathologist NPI- [id number] . 01 Gross description: . Received in formalin with two patient identifiers and gallbladder, is a 7.5 x 4.2 x 3.5 cm intact gallbladder. The stapled cystic duct margin is inked blue. The serosa is green-ruff and smooth. There is a 0.7 cm possible lymph node adjacent to the cystic duct. The mucosa is green and velvety with a uniform, 0.1 cm thick wall. The lumen contains green, viscous bile and greater than 20 yellow, bosselated calculi up to 0.9 cm. Car Examiner sections with cystic duct margin, gallbladder wall, and entire possible lymph node are submitted in cassette A1. ([id number]) /INDU 03/30/2025 1836 Local . 01 Pathologist provided ICD-10: K80.20 . 01 CPT . 651349 Specimen Comment: A courtesy copy of this report has been sent to [facility] Pathology Performed at: [address] [address], [place], [place] [id number] MD Tono Butler MD Phone: [phone]
--- NOTE | 2025-03-29 | DI.RAD.S_ITS ---
PROCEDURE: XR CHOLANGIOGRAM OPERATIVE INDICATIONS: Lap Minerva with IOC COMPARISON: None. FINDINGS: Biliary ducts: The surgeon injected contrast into the biliary ducts after cannulation of the cystic duct stump. Visualized intra- and extrahepatic bile ducts are normal in caliber, without strictures. No intraluminal filling defects to suggest retained ductal stones or sludge. No evidence for iatrogenic ductal injury. Duodenum: Contrast flows promptly through the sphincter of Oddi into the duodenum, which appears normal in caliber. IMPRESSION: Normal operative cholangiogram. Dictated by: Huber Pastor M.D. on 03/30/2025 at 11:23 Approved by: Huber Pastor M.D. on 03/30/2025 at 11:23
--- NOTE | 2025-03-29 07:08 | PM.HP.IH.1 ---
History of Present Illness History of Present Illness Date Patient Seen: 03/29/25 Time Patient Seen: 07:08 Chief complaint: Patrick Palma w/IO Narrative: Patient presents for patrick fields today. [facility] Medical History (Updated 03/29/25 @ 07:09 by Julio Mann MD) Hx of dizziness Back pain Generalized headaches Surgical History (Updated 03/21/25 @ 13:14 by Oneyda Zambrano RN) History of surgery (2011) Social History (Updated 03/20/25 @ 15:04 by Wellington Peralta MA) marital status: household members: family lives independently: No Meds Home Medications and Allergies Home Medications ?Medication ?Instructions ?Recorded ?Confirmed ?Type fluticasone propionate 50 1 spray intranasal Q12H #16 grams 03/25/23 03/20/25 Rx mcg/actuation nasal spray,suspension (Flonase Allergy Relief) sumatriptan succinate 50 mg tablet mg PO 03/25/23 03/20/25 History loratadine 10 mg tablet 10 mg PO DAILY 10/15/24 03/20/25 History topiramate 25 mg tablet 25 mg PO DAILY 10/15/24 03/20/25 History fluconazole 100 mg tablet 100 mg PO DAILY #7 tabs 12/14/24 03/20/25 Rx rizatriptan 10 mg disintegrating mg PO 12/14/24 03/20/25 History tablet hydrocodone 5 mg-acetaminophen 325 1 tab PO Q6H PRN pain #14 tabs 03/09/25 03/20/25 Rx mg tablet pantoprazole 40 mg tablet,delayed 40 mg PO DAILY 03/20/25 03/20/25 History release sucralfate 1 gram tablet 1 g PO BID 03/20/25 03/20/25 History Allergies Allergy/AdvReac Type Severity Reaction Status Date / Time No Known Drug Allergies Allergy Unverified 03/20/25 14:27 Exam Narrative Exam Narrative: Const General: healthy appearing, comfortable and no acute distress Orientation: alert and oriented x3 HENMT Ears: hearing grossly normal bilaterally Eyes Visual Street: normal visual street by confrontation Conjunctivae: conjunctivae normal Sclera: sclerae normal EOM: EOM intact bilaterally Resp Effort & Inspection: normal respiratory effort and able to speak in complete sentences Cardio Rate: regular rate GI Palpation: soft (NT) Extrem General: no pedal edema and no calf tenderness Assessment & Plan Assessment and plan (1) Symptomatic cholelithiasis: Status: Acute Plan Plan laparoscopic cholecystectomy with cholangiogram. The risks, benefits and options regarding the procedure were explained to the patient in detail. Risk discussion included but not limited to: open incision, bleeding, infection, drain, bile leak, abscess, injury to bile duct. The patient was encouraged to ask questions and they were answered to their satisfaction. The patient understands and is agreeable to proceed. Time-Based Coding :: [TOTAL MINUTES] spent with patient and on the chart (including review of chart, obtaining history, exam, reviewing outside data, placing orders, documenting exam and treatment plan, and counseling patient) on [DATE]. PROFEE Pbx Inspector Document charge(s): Yes Charge Codes Inpatient/observation care including admit and discharge same day: [id number]
[2025-03-29] MEDS: LACTATED RINGERS 1,000 ML 42 ML IV ×2 (10:14→12:48)
[2025-03-29] MEDS: SCOPOLAMINE 1 PATCH TOP (10:14)
[2025-03-29] MEDS: ACETAMINOPHEN IV 1,000 MG/100 ML VIAL 400 MG IV (12:40)
--- NOTE | 2025-03-29 12:40 | SUR.OPER ---
Supine on padded OR bed, head on pillow, safety belt at thigh, right arm padded and tucked at side. left arm secured on padded arm board <90 degrees abduction. Legs uncrossed. Padded footboard in place. Tape over blanket to secure lower legs.
[2025-03-29] MEDS: BUPivacaine 0.25% W/ EPI (PF) 30 ML VIAL 60 ML INJ (12:56)
--- NOTE | 2025-03-29 13:19 | P.OP_ITS ---
Operative Date/Time/Diagnoses Date of procedure: 03/29/25 Time of procedure: 13:19 Pre-op diagnosis: Symptomatic cholelithiasis Post-op diagnosis: same Procedure & Clinicians Procedure: Laparoscopic cholecystectomy with cholangiogram Same procedure(s) as scheduled: Yes Indications: 34yo F with symptomatic cholelithiasis Surgeon: Julio Mann Assisted?: Yes Psychology Assistant: Samuel Bowers Anesthesia Type: General Operative Notes Findings: No omental adhesions, normal cholangiogram, gallbladder distended, had cholesterolosis appearance Closure Type: primary Specimen(s): other (gallbladder) Applied: none Estimated Blood Loss (mL): 10 Blood products transfused: none Procedure in detail: After informed consent and satisfactory general endotracheal anesthesia, the abdomen was prepped and draped in the usual sterile manner.? The patient received appropriate preoperative antibiotics and DVT prophylaxis.? Surgical time-out was performed with all team members in agreement.? The pneumoperitoneum was established under direct vision using the Mahan direct trocar cutdown technique.? An 0 Vicryl [id number] suture was placed on the umbilical fascia.? The 10 mm 30 degree lens was inserted and no trauma secondary to the trocar insertion was noted.? We performed bilateral laparoscopic TAP blocks using 25 cc of 0.25% Marcaine with epinephrine.? The additional 10 cc of local was used in the skin and subcutaneous tissues at the incision sites for a total of 60 cc of local.? The patient was placed in reverse Trendelenburg, [id number] position.? The fundus of the gallbladder was grasped and retracted over the liver.? The infundibulum was retracted laterally for proper exposure of the cystic duct and artery.? There were no omental adhesions. The gallbladder was distended but easily graspable. Critical view of safety was achieved with 2 distinct structures entering the gallbladder and segment 5 of the liver posterior.? A cholangiogram was performed using a yellow ureteral catheter through the Galvin clamp.? The cystic duct and cystic artery were skeletonized with hook cautery.? A clip was placed on the cystic duct next to the gallbladder.? A ductotomy was made with laparoscopic Metzenbaum scissors.? The cholangiogram was normal.? It demonstrated normal caliber right and left hepatic ducts, common hepatic duct and common bile duct without filling defect, mass or stricture.? The contrast flowed unobstructed into the duodenum.? The cholangiogram catheter was removed and the cystic duct was doubly clipped and divided.? The cystic artery was similarly skeletonized, doubly clipped and di vided with laparoscopic Metzenbaum scissors.? The adhesions between the gallbladder and the liver were divided with hook cautery.? The gallbladder was placed into an endo-pouch and removed.? The gallbladder bed and clips were inspected and no bleeding or bile drainage was noted.? The trocars were removed and there was no bleeding noted at the trocar sites.? The 0 Vicryl [id number] suture was tied and there were no palpable fascial defects.? The skin incisions were closed using 4-0 Monocryl in a subcuticular manner.? Dermabond glue was applied as a final dressing.? The estimated blood loss was minimal.? The instrument sponge and needle counts were all correct x2.? The patient tolerated the procedure well and was extubated in the operating room and transported to the recovery area in stable condition. Complications: none Post-operative Condition: stable Disposition: PACU Plan for aftercare: PACU then home
[2025-03-29] MEDS: hydrOXYzine 50 MG/ML INJ 25 MG IM (13:54)
[2025-03-29] MEDS: ONDANSETRON 4 MG/2 ML INJ IV (13:59)
[2025-03-29] MEDS: KETOROLAC 30 MG/ML VIAL 15 MG IV (13:59)
== END 2025-03-29 15:25 | disposition home or self-care (01) ==
PROVIDERS: Family Provider Obstetrics & Gynecology; Referring Provider Surgery; Visit Provider Surgery
PROC: 0FT44ZZ Resection of Gallbladder, Percutaneous Endoscopic Approach (ICD-10-PCS; CPT 47563; principal; 2025-03-29 11:15)
DX: K80.10 Calculus of gallbladder with chronic cholecystitis without obstruction (principal); E66.9 Obesity, unspecified; Z68.32 Body mass index [BMI] 32.0-32.9, adult
CPT/HCPCS: 47563; 74300; 81025; J0131; J0330; J0689; J1100; J1885; J2250; J2405; J2704; J3010; J3410; J3490; J7120; Q9967